=== PATIENT | male | born 1940 | race Caucasian/White ===

== ENCOUNTER 2024-04-27 10:09 | Outpatient (AMB) | payer MEDICARE, SELFPAY ==
--- NOTE | 2024-04-27 10:46 | MHC.PC.OV ---
Vital Signs 04/27/24 10:52 Height 5 ft 6.93 in Weight 139 lb 2 oz BMI 21.8 BP 116/64 Blood Pressure Location Rt brachial Position Sitting Respiration 14 Pulse 70 Pulse Source Pulse Oximeter Temp 98 F Temp Source Oral Pulse Oximetry (%) 99 Oxygen Delivery Method Room Air Intake Visit Reasons: Establish Care transfer from [facility] Intake Note: New patient visit Allergies No Known Allergies Allergy (Verified 04/27/24 10:47) Medication List - Last Reconciled 04/27/24 by Lianna Russo MD amlodipine 5 mg PO DAILY aspirin 81 mg PO DAILY isosorbide mononitrate ER 30 mg PO DAILY nitroglycerin mg sublingual nortriptyline 10 mg PO BEDTIME rosuvastatin 20 mg PO BEDTIME Tobacco use date assessed: 04/27/24 Fall risk assessment: 2 + Falls in past year (10 times a week playing hockey) Last assessed Fall Risk: 04/27/24 Dental Screening Dental Screen Date: 04/27/24 Did you have a dental visit in the last 12 months?: Yes Did you have a dental problem in the last 6 months where you did not have access to dental care?: No Was dental information given to patient?: Patient has dentist HPI HPI Comments History of Present Illness Details The patient is an 83 year old male with a past medical history of hyperlipidemia, Menieres disease, knee pain, neck pain, 1st degree heart block, arrythmia presenting for follow up CV: Follows with Dr Palma. Currently on amlodipine 5mg daily, imdur 30mg daily. BP on low side. Sometimes does get lightheaded upon standing. Patient says originally imdur helped with his shortness of breath. Patient has started skating again. He has some shortness of breath with prolonged skating otherwise feels fairly well. ROS CONSTITUTIONAL: Denies weight loss, fever and chills. HEENT: Denies changes in vision and hearing. RESPIRATORY: Denies SOB and cough. CV: Denies palpitations and CP GI: Denies abdominal pain, nausea, vomiting and diarrhea. : Denies dysuria and urinary frequency. MSK: Denies new myalgia and joint pain. SKIN: Denies rash and pruritus. NEUROLOGICAL: Denies headache PSYCHIATRIC: Denies recent changes in mood. PHYSICAL EXAM: GENERAL: Alert and oriented x 3. NAD EYES: EOMI. Anicteric. HENT: Moist mucous membranes. No scleral icterus. No cervical lymphadenopathy. LUNGS: Clear to auscultation bilaterally. CARDIOVASCULAR: Regular rate and rhythm. No murmur. No JVD. ABDOMEN: Soft, non-tender +bs EXTREMITIES: No edema. Non-tender. SKIN: No rashes or lesions. Warm. NEUROLOGIC: No focal neurological deficits. CN II-XII grossly intact PSYCHIATRIC: Cooperative. Appropriate mood and affect [facility] Social History Housing: House Cigarette Packs Per Day: 1 Years Smoked: 15, quit 50 years ago e-Cigarette/Vaping Use: Never Used Second Hand Smoke Exposure: Yes (past) service: No Current occupational status: retired Cognitive needs: No Hearing needs: Yes (Hearing aids) Vision needs: No Questionnaire PHQ-9 Over the last 2 weeks, how often have you been bothered by any of the following problems? 1. Little interest or pleasure in doing things: not at all 2. Feeling down, depressed, or hopeless: not at all 3. Trouble falling or staying asleep, or sleeping too much: not at all 4. Feeling tired or having little energy: not at all 5. Poor appetite or overeating: not at all 6. Feeling bad about yourself - or that you are a failure or have let yourself or your family down: not at all 7. Trouble concentrating on things, such as reading the newspaper or watching television: not at all 8. Moving or speaking so slowly that other people could have noticed. Or the opposite - being so fidgety or restless that you have been moving around a lot more than usual: not at all 9. Thoughts that you would be better off or of hurting yourself in some way: not at all Total score: 0 Depression Screening Interpretation: Negative (neg) Depression Screening Done: Yes 17655 - PHQ-9 Billing: Yes Source: Developed by Drs. Riley Cedeño, Beatriz Barlow, Ochoa Campoverde and colleagues, with an educational clyde from [employer]. Thrive Questionnaire Date Thrive assessed: 04/27/24 I am a: Patient What is your living situation today?: I have a steady place to live Within the past 12 months, did the food you bought not last and you didn't have the money to get more?: Never true Within the past 12 months, did you worry whether your food would run out before you got money to buy more?: Never true Do you have trouble paying for medicines?: No Do you have trouble getting transportation to medical appointments?: No Do you have trouble paying your heating and electricity bill?: No Do you have trouble taking care of your child, family member or friend?: No Do you have trouble with day-to-day activities such as bathing, preparing meals, shopping, managing finances, etc.?: No Are you currently unemployed and looking for a job?: No Are you interested in more education?: No Please select the resources that you would like help with: None Currently or been in a relationship where the following occur: no concerns reported THRIVE Score: 0 AUDIT C Alcohol Use Questionnaire (AUDIT-C) 1. How often do you have a drink containing alcohol?: Never (Past) 3. How often do you have six or more drinks on one occasion?: Never Total Score: 0 RIOS-7 AMB Questionnaire RIOS-7 Date RIOS - 7 assessed: 04/27/24 Feeling nervous, anxious, or on edge: 0 = Not at all Not being able to stop or control worryin = Not at all Worrying too much about different things: 0 = Not at all Trouble relaxin = Not at all Being so restless that it is hard to sit still: 0 = Not at all Becoming easily annoyed or irritable: 0 = Not at all Feeling afraid as if something awful might happen: 0 = Not at all Total RIOS-7 score (0-4 normal; 5-9 mild; 10-14 moderate; 15-21 severe): 0 Source: Developed by Drs. Riley Cedeño, Beatriz Barlow, Ochoa Campoverde and colleagues, with an educational clyde from [employer]. RIOS-7 Assessment Billing RIOS-7 Assessment Tool: RIOS-7 Assessment 27323 Physical exam (Primary Care) Vital Signs: Last Vital Signs Temp 98 F 04/27/24 10:52 Pulse 70 04/27/24 10:52 Resp 14 04/27/24 10:52 BP 116/64 04/27/24 10:52 Pulse Ox 99 04/27/24 10:52 Oxygen Delivery Method Room Air 04/27/24 10:52 BMI result Body Mass Index 21.8 Tobacco/Smoking Status: Tobacco use Status Tobacco use date assessed 04/27/24 04/27/24 10:54 e-Cigarette/Vaping Use Never Used 04/27/24 10:54 PHQ-9: PHQ-9 Score PHQ-9: Total score 0 04/28/24 14:36 Depression Screening Interpretation: Negative (neg) Thrive Assessment: Date of Thrive Assessment Date Thrive assessed 04/27/24 04/27/24 11:13 Currently or been in a relationship where the following occur: no concerns reported Assessment and Plan Assessment & Plan (1) Arrhythmia: Code(s): I49.9 - Cardiac arrhythmia, unspecified Qualifiers: Arrhythmia type: unspecified cardiac arrhythmia Qualified Code(s): I49.9 - Cardiac arrhythmia, unspecified Plan: stop amlodipine. May need to increased imdur but declines at this time. continue close cardiology follow up (2) Degenerative disc disease, cervical: Code(s): M50.30 - Other cervical disc degeneration, unspecified cervical region (3) History of basal cell carcinoma (BCC): Code(s): Z85.828 - Personal history of other malignant neoplasm of skin (4) Hyperlipidemia: Code(s): E78.5 - Hyperlipidemia, unspecified Qualifiers: Hyperlipidemia type: mixed hyperlipidemia Qualified Code(s): E78.2 - Mixed hyperlipidemia (5) Hypertension: Code(s): I10 - Essential (primary) hypertension Qualifiers: Hypertension type: primary hypertension Qualified Code(s): I10 - Essential (primary) hypertension Orders: Orders Prostate Specific Antigen Scr 04/27/24 E78.5 - Hyperlipidemia, unspecified, I10 - Essential (primary) hypertension, I49.9 - Cardiac arrhythmia, unspecified, M50.30 - Other cervical disc degeneration, unspecified cervical region Lipid Panel 04/27/24 E78.5 - Hyperlipidemia, unspecified, I10 - Essential (primary) hypertension, I49.9 - Cardiac arrhythmia, unspecified, M50.30 - Other cervical disc degeneration, unspecified cervical region Complete Blood Count Auto Diff 04/27/24 E78.5 - Hyperlipidemia, unspecified, I10 - Essential (primary) hypertension, I49.9 - Cardiac arrhythmia, unspecified, M50.30 - Other cervical disc degeneration, unspecified cervical region Comprehensive Met. Panel 04/27/24 E78.5 - Hyperlipidemia, unspecified, I10 - Essential (primary) hypertension, I49.9 - Cardiac arrhythmia, unspecified, M50.30 - Other cervical disc degeneration, unspecified cervical region Coding Level of Care Code Est Pt Level 4 (34414) Complex EM visit Add On G2211 Diagnoses Cardiac arrhythmia, unspecified cardiac arrhythmia type I49.9 Arrhythmia type: unspecified cardiac arrhythmia Degenerative disc disease, cervical M50.30 History of basal cell carcinoma (BCC) Z85.828 Mixed hyperlipidemia E78.2 Hyperlipidemia type: mixed hyperlipidemia Primary hypertension I10 Hypertension type: primary hypertension Additional Codes RIOS-7 Assessment Billing - RIOS-7 Assessment Tool: RIOS-7 Assessment 45922 ([id number])
[2024-04-27 10:52] VITALS: BP 116/64; PULSE 70; RESP 14; TEMP 36.6; O2SAT 99; BMI 21.8
== END 2024-04-27 11:32 | disposition home or self-care (01) ==
PROVIDERS: PCP Internal Medicine; Visit Provider Internal Medicine
DX: I49.9 Cardiac arrhythmia, unspecified (principal); M50.30 Other cervical disc degeneration, unspecified cervical region; Z85.828 Personal history of other malignant neoplasm of skin; E78.2 Mixed hyperlipidemia; I10 Essential (primary) hypertension
CPT/HCPCS: 99214; G2211

== ENCOUNTER 2024-10-01 13:42 | Outpatient (AMB) | payer MEDICARE, SELFPAY ==
--- NOTE | 2024-10-01 13:48 | MHC.PC.OV ---
Vital Signs 10/01/24 13:49 Height 5 ft 6.93 in Weight 142 lb 4 oz BMI 22.3 BP 116/64 Blood Pressure Location Rt brachial Position Sitting Pulse 73 Pulse Source Pulse Oximeter Pulse Oximetry (%) 97 Oxygen Delivery Method Room Air Intake Visit Reasons: blood work issues from cardiology Intake Note: Discuss labs form Cardiology. Allergies No Known Allergies Allergy (Verified 10/01/24 13:48) Tobacco use date assessed: 04/27/24 Dental Screening Dental Screen Date: 04/27/24 HPI HPI Comments History of Present Illness Details The patient is an 83 year old male with a past medical history of hyperlipidemia, Menieres disease, knee pain, neck pain, 1st degree heart block, arrythmia presenting for follow up Patient was sent from cardiology. Hgb on recent labs 13.3 with hematocrit of 39.6 from last years 14 and 42. Does have chronic exertional shortness of breath. Last colonoscopy was approximately 3 years ago-Dr Mcfarlane. Was told normal and did not need another. MCV 100.9. No bleeding CV: Follows with Dr Palma. Currently on amlodipine 5mg daily, imdur 30mg daily. Sometimes does get lightheaded upon standing. Patient says originally imdur helped with his shortness of breath. Patient has started skating again. He has some shortness of breath with prolonged skating otherwise feels fairly well. ROS see HPI PHYSICAL EXAM: GENERAL: Alert and oriented x 3. NAD EYES: EOMI. Anicteric. HENT: Moist mucous membranes. No scleral icterus. No cervical lymphadenopathy. LUNGS: Clear to auscultation bilaterally. CARDIOVASCULAR: Regular rate and rhythm. No murmur. No JVD. ABDOMEN: Soft, non-tender +bs EXTREMITIES: No edema. Non-tender. SKIN: No rashes or lesions. Warm. NEUROLOGIC: No focal neurological deficits. CN II-XII grossly intact PSYCHIATRIC: Cooperative. Appropriate mood and affect [facility] Social History Housing: House Cigarette Packs Per Day: 1 Years Smoked: 15, quit 50 years ago e-Cigarette/Vaping Use: Never Used Second Hand Smoke Exposure: Yes (past) service: No Current occupational status: retired Cognitive needs: No Hearing needs: Yes (Hearing aids) Vision needs: No Questionnaire PHQ-9 Over the last 2 weeks, how often have you been bothered by any of the following problems? 1. Little interest or pleasure in doing things: not at all 2. Feeling down, depressed, or hopeless: not at all 3. Trouble falling or staying asleep, or sleeping too much: not at all 4. Feeling tired or having little energy: several days 5. Poor appetite or overeating: not at all 6. Feeling bad about yourself - or that you are a failure or have let yourself or your family down: not at all 7. Trouble concentrating on things, such as reading the newspaper or watching television: not at all 8. Moving or speaking so slowly that other people could have noticed. Or the opposite - being so fidgety or restless that you have been moving around a lot more than usual: not at all 9. Thoughts that you would be better off or of hurting yourself in some way: not at all Total score: 1 Depression Screening Interpretation: Negative Depression Screening Done: Yes 79960 - PHQ-9 Billing: Yes Source: Developed by Drs. Riley Cedeño, Beatriz Barlow, Ochoa Campoverde and colleagues, with an educational clyde from [employer].. Thrive Questionnaire Date Thrive assessed: 04/27/24 I am a: Patient What is your living situation today?: I have a steady place to live Within the past 12 months, did the food you bought not last and you didn't have the money to get more?: Never true Within the past 12 months, did you worry whether your food would run out before you got money to buy more?: Never true Do you have trouble paying for medicines?: No Do you have trouble getting transportation to medical appointments?: No Do you have trouble paying your heating and electricity bill?: No Do you have trouble taking care of your child, family member or friend?: No Do you have trouble with day-to-day activities such as bathing, preparing meals, shopping, managing finances, etc.?: No Are you currently unemployed and looking for a job?: No Are you interested in more education?: No Please select the resources that you would like help with: None Currently or been in a relationship where the following occur: No concerns reported THRIVE Score: 0 AUDIT C Alcohol Use Questionnaire (AUDIT-C) 1. How often do you have a drink containing alcohol?: Never Total Score: 0 RIOS-7 AMB Questionnaire RIOS-7 Date RIOS - 7 assessed: 04/27/24 Feeling nervous, anxious, or on edge: 0 = Not at all Not being able to stop or control worryin = Not at all Worrying too much about different things: 0 = Not at all Trouble relaxin = Not at all Being so restless that it is hard to sit still: 0 = Not at all Becoming easily annoyed or irritable: 0 = Not at all Feeling afraid as if something awful might happen: 0 = Not at all Total RIOS-7 score (0-4 normal; 5-9 mild; 10-14 moderate; 15-21 severe): 0 Source: Developed by Drs. Riley Cedeño, Beatriz Barlow, Ochoa Campoverde and colleagues, with an educational clyde from [employer].. Physical exam (Primary Care) Vital Signs: Last Vital Signs Pulse 73 10/01/24 13:49 BP 116/64 10/01/24 13:49 Pulse Ox 97 10/01/24 13:49 Oxygen Delivery Method Room Air 10/01/24 13:49 BMI result Body Mass Index 22.3 Tobacco/Smoking Status: Tobacco use Status Tobacco use date assessed 04/27/24 10/01/24 13:52 e-Cigarette/Vaping Use Never Used 10/01/24 13:52 PHQ-9: PHQ-9 Score PHQ-9: Total score 1 10/01/24 13:52 Depression Screening Interpretation: Negative Thrive Assessment: Date of Thrive Assessment Date Thrive assessed 04/27/24 10/01/24 13:52 Currently or been in a relationship where the following occur: No concerns reported Coding Level of Care Code Est Pt Level 4 (28295) Diagnoses Mild anemia D64.9 Additional Codes PHQ-9 - 19323 - PHQ-9 Billing: Yes ([id number]) Assessment & Plan Assessment & Plan (1) Mild anemia: Code(s): D64.9 - Anemia, unspecified Category: Medical Plan: Anemia, macrocytic. Labs ordered. Will follow up thereafter Orders: Orders TSH reflex Free T4 Today D64.9 - Anemia, unspecified Complete Blood Count Auto Diff Today D64.9 - Anemia, unspecified Vitamin B12 and Folate Today D64.9 - Anemia, unspecified IRON PROFILE Today D64.9 - Anemia, unspecified Ferritin Today D64.9 - Anemia, unspecified Pathologist Review - CBC Today D64.9 - Anemia, unspecified
[2024-10-01 13:49] VITALS: BP 116/64; PULSE 73; O2SAT 97; BMI 22.3
== END 2024-10-01 14:25 | disposition home or self-care (01) ==
PROVIDERS: PCP Internal Medicine; Visit Provider Internal Medicine
DX: D64.9 Anemia, unspecified (principal)

== ENCOUNTER → 2024-10-01 13:42 | Outpatient (BNVA) | payer MEDICARE, SELFPAY | PROVIDERS: PCP Internal Medicine; Visit Provider Internal Medicine | DX: D53.9 Nutritional anemia, unspecified (principal) | CPT/HCPCS: 96127; 99212 ==

== ENCOUNTER 2024-10-01 14:38 | Outpatient (REF) | payer MEDICARE, SELFPAY ==
[2024-10-01 17:42] LABS: MANUAL DIFF FLAG NO
[2024-10-01 18:06] LABS: Basophils Absolute Auto 0.1 X10*3/uL (0.0-0.2); Basophils Percent Auto 1.6 % (0-2); Eosinophils Absolute Auto 0.2 X10*3/uL (0.0-0.4); Eosinophils Percent Auto 3.4 % (0-4); Hematocrit 38.6 % (42.0-52.0); Hemoglobin 13.3 g/dl (14.0-18.0); Imm Gran Abs Auto 0.01 X10*3/uL (0.00-0.03); Imm Gran Pct Auto 0.2 % (0.0-0.4); Lymphocytes Absolute Auto 1.6 X10*3/uL (1.2-4.9); Lymphocytes Percent Auto 36.8 % (20-40); Mean Corpuscular HGB Conc 34.5 g/dl (31.0-36.0); Mean Corpuscular Hemoglobin 33.8 pg (27.0-33.0); Mean Corpuscular Volume 98.2 fL (80.0-98.0); Mean Platelet Volume 10.3 fL (9.4-12.4); Monocytes Absolute Auto 0.4 X10*3/uL (0.1-1.2); Monocytes Percent Auto 8.3 % (2-11); Neutrophils Absolute Auto 2.2 x10*3/uL (2.0-8.3); Neutrophils Percent Auto 49.7 % (45-73); Platelet Count 158 X10*3/uL (160-400); Red Blood Count 3.93 X10*6/uL (4.60-5.80); Red Cell Distribution Width 12.6 % (11.0-16.0); White Blood Count 4.4 X10*3/uL (4.8-10.8)
[2024-10-01 18:20] LABS: Iron 93 mcg/dL (45-160); Percent Iron Saturation 37 % (15-50); Total Iron Binding Capacity 252 mcg/dL (228-428); Unsaturated Iron Binding 159 ug/dL
[2024-10-01 18:27] LABS: Ferritin 164 ng/mL (20-250); TSH reflex Free T4 1.84 uIU/mL (0.32-4.0)
[2024-10-01 18:46] LABS: Folate 15.8 ng/mL (> or = 4.0); Vitamin B12 788 pg/mL (200-900)
== END 2024-10-01 14:39 | disposition home or self-care (01) ==
LOC: HO.WFDLDS 14:38
PROVIDERS: Visit Provider Internal Medicine
DX: D64.9 Anemia, unspecified (principal)
CPT/HCPCS: 82607; 82728; 82746; 83540; 84443; 85025

== ENCOUNTER 2024-11-12 09:59 | Outpatient (AMB) | payer MEDICARE, SELFPAY ==
--- NOTE | 2024-11-12 10:06 | MHC.PC.OV ---
Vital Signs 11/12/24 10:09 Height 5 ft 6.93 in Weight 142 lb 4 oz BMI 22.3 BP 118/56 L Blood Pressure Location Rt brachial Position Sitting Pulse 65 Pulse Source Pulse Oximeter Pulse Oximetry (%) 93 Oxygen Delivery Method Room Air Intake Visit Reasons: bloodwork/anemia Intake Note: Lab results Business Systems Consultant Required: No Allergies No Known Allergies Allergy (Verified 11/12/24 10:07) Tobacco use date assessed: 04/27/24 Dental Screening Dental Screen Date: 04/27/24 HPI HPI Comments History of Present Illness Details The patient is an 83 year old male with a past medical history of hyperlipidemia, Menieres disease, knee pain, neck pain, 1st degree heart block, arrythmia presenting for follow up Patient has increased fatigue over the past few months, stable exertional dyspnea. Still going to gym, playing hockey but comes home and has to take a nap. Feels like he is not sleeping as well as he used to Has developed mild anemia since last year. Smear with pseudopelger neutrophils and mildly decreased platelets otherwise reassuring. Iron, b12 and folate normal. Last colonoscopy was approximately 3 years ago-Dr Mcfarlane. No bleeding CV: Follows with Dr Palma. Currently on amlodipine 5mg daily, imdur 30mg daily. Sometimes does get lightheaded upon standing. Patient says originally imdur helped with his shortness of breath. Patient has started skating again. He has some shortness of breath with prolonged skating otherwise feels fairly well. ROS see HPI PHYSICAL EXAM: GENERAL: Alert and oriented x 3. NAD EYES: EOMI. Anicteric. HENT: Moist mucous membranes. No scleral icterus. No cervical lymphadenopathy. LUNGS: Clear to auscultation bilaterally. CARDIOVASCULAR: Regular rate and rhythm. No murmur. No JVD. ABDOMEN: Soft, non-tender +bs EXTREMITIES: No edema. Non-tender. SKIN: No rashes or lesions. Warm. NEUROLOGIC: No focal neurological deficits. CN II-XII grossly intact PSYCHIATRIC: Cooperative. Appropriate mood and affect [facility] Social History (Updated 11/12/24 @ 10:13 by Makayla Whittaker CMA) Housing: House Alcohol intake: never Patient Tobacco Use Status: Former Tobacco user Cigarette Packs Per Day: 1 Years Smoked: 15, quit 50 years ago e-Cigarette/Vaping Use: Never Used Second Hand Smoke Exposure: Yes (past) service: No Current occupational status: retired Cognitive needs: No Hearing needs: Yes (Hearing aids) Vision needs: No Questionnaire PHQ-9 Over the last 2 weeks, how often have you been bothered by any of the following problems? 1. Little interest or pleasure in doing things: not at all 2. Feeling down, depressed, or hopeless: not at all 3. Trouble falling or staying asleep, or sleeping too much: not at all 4. Feeling tired or having little energy: several days 5. Poor appetite or overeating: not at all 6. Feeling bad about yourself - or that you are a failure or have let yourself or your family down: not at all 7. Trouble concentrating on things, such as reading the newspaper or watching television: not at all 8. Moving or speaking so slowly that other people could have noticed. Or the opposite - being so fidgety or restless that you have been moving around a lot more than usual: not at all 9. Thoughts that you would be better off or of hurting yourself in some way: not at all Total score: 1 Depression Screening Interpretation: Negative (neg) Depression Screening Done: Yes 54206 - PHQ-9 Billing: Yes Source: Developed by Drs. Riley Cedeño, Beatriz Barlow, Ochoa Campoverde and colleagues, with an educational clyde from [employer]. Thrive Questionnaire Date Thrive assessed: 11/12/24 I am a: Patient What is your living situation today?: I have a steady place to live Within the past 12 months, did the food you bought not last and you didn't have the money to get more?: Never true Within the past 12 months, did you worry whether your food would run out before you got money to buy more?: Never true Do you have trouble paying for medicines?: No Do you have trouble getting transportation to medical appointments?: No Do you have trouble paying your heating and electricity bill?: No Do you have trouble taking care of your child, family member or friend?: No Do you have trouble with day-to-day activities such as bathing, preparing meals, shopping, managing finances, etc.?: No Are you currently unemployed and looking for a job?: No Are you interested in more education?: No Please select the resources that you would like help with: None Currently or been in a relationship where the following occur: No concerns reported THRIVE Score: 0 AUDIT C Alcohol Use Questionnaire (AUDIT-C) 1. How often do you have a drink containing alcohol?: Never Total Score: 0 RIOS-7 AMB Questionnaire RIOS-7 Date RIOS - 7 assessed: 11/12/24 Feeling nervous, anxious, or on edge: 0 = Not at all Not being able to stop or control worryin = Not at all Worrying too much about different things: 0 = Not at all Trouble relaxin = Not at all Being so restless that it is hard to sit still: 0 = Not at all Becoming easily annoyed or irritable: 0 = Not at all Feeling afraid as if something awful might happen: 0 = Not at all Total RIOS-7 score (0-4 normal; 5-9 mild; 10-14 moderate; 15-21 severe): 0 Source: Developed by Drs. Riley Cedeño, Beatriz Barlow, Ochoa Campoverde and colleagues, with an educational clyde from [employer]. RIOS-7 Assessment Billing RIOS-7 Assessment Tool: RIOS-7 Assessment 88172 Physical exam (Primary Care) Vital Signs: Last Vital Signs Pulse 65 11/12/24 10:09 BP 118/56 L 11/12/24 10:09 Pulse Ox 93 11/12/24 10:09 Oxygen Delivery Method Room Air 11/12/24 10:09 BMI result Body Mass Index 22.3 Tobacco/Smoking Status: Tobacco use Status Tobacco use date assessed 04/27/24 11/12/24 10:13 Patient Tobacco Use Status Former Tobacco user 11/12/24 10:13 e-Cigarette/Vaping Use Never Used 11/12/24 10:13 PHQ-9: PHQ-9 Score PHQ-9: Total score 1 11/12/24 13:52 Depression Screening Interpretation: Negative (neg) Thrive Assessment: Date of Thrive Assessment Date Thrive assessed 11/12/24 11/12/24 10:13 Currently or been in a relationship where the following occur: No concerns reported Coding Level of Care Code Est Pt Level 4 (74425) Complex EM visit Add On G2211 Diagnoses Fatigue, unspecified type R53.83 Fatigue type: unspecified Anemia, unspecified type D64.9 Anemia type: unspecified type Additional Codes RIOS-7 Assessment Billing - RIOS-7 Assessment Tool: RIOS-7 Assessment 90163 ([id number]) PHQ-9 - 76072 - PHQ-9 Billing: Yes ([id number]) Assessment & Plan Assessment & Plan (1) Fatigue: Code(s): R53.83 - Other fatigue Category: Medical Qualifiers: Fatigue type: unspecified Qualified Code(s): R53.83 - Other fatigue Plan: Repeat labs Consider hematology consult pending results Exertional dyspnea is stable. No chest pain (2) Anemia: Code(s): D64.9 - Anemia, unspecified Category: Medical Qualifiers: Anemia type: unspecified type Qualified Code(s): D64.9 - Anemia, unspecified Plan: see above Orders: Orders Pathologist Review - CBC Today D64.9 - Anemia, unspecified, R53.83 - Other fatigue UA CC w/rflx Micro + Cult Today D64.9 - Anemia, unspecified, R53.83 - Other fatigue Complete Blood Count Auto Diff Today D64.9 - Anemia, unspecified, R53.83 - Other fatigue Lyme IgG/IgM w/reflex to WB Today D64.9 - Anemia, unspecified, R53.83 - Other fatigue Medications: New trazodone 50 mg PO BEDTIME PRN 90 tabs 3RF sleep
[2024-11-12 10:09] VITALS: BP 118/56; PULSE 65; O2SAT 93; BMI 22.3
== END 2024-11-12 10:42 | disposition home or self-care (01) ==
PROVIDERS: PCP Internal Medicine; Visit Provider Internal Medicine
DX: R53.83 Other fatigue (principal); D64.9 Anemia, unspecified

== ENCOUNTER 2024-11-12 10:46 | Outpatient (REF) | payer MEDICARE, SELFPAY ==
[2024-11-12 14:07] LABS: MANUAL DIFF FLAG NO
[2024-11-12 14:09] LABS: Appearance Urine Clear; Color Urine Yellow; Glucose Urine UA Negative (Negative); Leukocyte Esterase Urine Negative (Negative); Nitrite Urine Negative (Negative); Specific Gravity - Urine 1.015 (1.005-1.025); Urine Blood Negative (Negative); Urine Ketones Negative (Negative); Urine Protein Negative (Neg-Trace)
[2024-11-12 14:12] LABS: Basophils Absolute Auto 0.1 X10*3/uL (0.0-0.2); Eosinophils Absolute Auto 0.2 X10*3/uL (0.0-0.4); Eosinophils Percent Auto 3.3 % (0-4); Hematocrit 41.3 % (42.0-52.0); Hemoglobin 13.8 g/dl (14.0-18.0); Imm Gran Abs Auto 0.01 X10*3/uL (0.00-0.03); Imm Gran Pct Auto 0.2 % (0.0-0.4); Lymphocytes Absolute Auto 1.5 X10*3/uL (1.2-4.9); Lymphocytes Percent Auto 29.3 % (20-40); Mean Corpuscular HGB Conc 33.4 g/dl (31.0-36.0); Mean Corpuscular Hemoglobin 33.8 pg (27.0-33.0); Mean Corpuscular Volume 101.2 fL (80.0-98.0); Mean Platelet Volume 10.4 fL (9.4-12.4); Monocytes Absolute Auto 0.4 X10*3/uL (0.1-1.2); Monocytes Percent Auto 8.2 % (2-11); Platelet Count 186 X10*3/uL (160-400); Red Blood Count 4.08 X10*6/uL (4.60-5.80); Red Cell Distribution Width 12.6 % (11.0-16.0); White Blood Count 5.2 X10*3/uL (4.8-10.8)
[2024-11-15 19:08] LABS: Lyme Abs Screen <0.90 index
== END 2024-11-12 10:47 | disposition home or self-care (01) ==
LOC: HO.WFDLDS 10:46
PROVIDERS: Visit Provider Internal Medicine
DX: D64.9 Anemia, unspecified (principal); R53.83 Other fatigue
CPT/HCPCS: 81003; 85025; 86617; 86618; 96127; 99212

== ENCOUNTER → 2024-12-15 11:02 | Outpatient (BNV) | payer MEDICARE, SELFPAY | PROVIDERS: PCP Internal Medicine; Visit Provider Internal Medicine | DX: D64.9 Anemia, unspecified (principal) | CPT/HCPCS: 99204; G2211 ==